=== PATIENT | male | born 1955 | race American Indian/Alaskan Native ===

== ENCOUNTER 2017-11-08 15:35 | Emergency (ER) | payer OTHER, MEDICARE ==
[2017-11-08] MEDS ORDERED: Morphine 4 MG/ML Syringe IVPUSH ONE (16:04)
[2017-11-08] MEDS ORDERED: Ketorolac 30 MG/ML SDV IVPUSH ONE (16:25)
[2017-11-08] MEDS ORDERED: Acetaminophen/HYDROcodone 325-5 MG Tab PO PRN (16:35)
[2017-11-08] MEDS ORDERED: Take Home: Acetaminophen/HYDROcodone 325-5 MG, 5 Tab Pack PO ONE (16:54)
[2017-11-08 17:06] VITALS: BP 161/100
--- NOTE | 2017-11-09 21:16 | EDM.PDOC ---
ED HPI GENERAL MEDICAL PROBLEM - General Chief Complaint: Back Pain or Injury Time Seen by Provider: 11/08/17 15:55 Source of Information: Reports: Patient History Limitations: Reports: No Limitations - History of Present Illness INITIAL COMMENTS - FREE TEXT/NARRATIVE: low back pain. Acute on chronic. Has been dealing with this for some time. States pain is in his lumbar spine and radiates into his L buttock area. Denies any trauma to the area. No fecal or urinary incontinence. States that discomfort is worse with movement. Has been seen twice in ER for this. States that he is unable to stand or walk due to discomfort. Has not had any imaging of his lumbar spine. Refuses to do PT as it "isn't working". Location: Reports: Back Quality: Reports: Ache, Throbbing Severity: Moderate Improves with: Reports: Rest Worsens with: Reports: Movement Lower Back Pain Score (Numeric/FACES): 4 - Related Data Allergies Allergy/AdvReac Type Severity Reaction Status Date / Time No Known Allergies Allergy Verified 11/08/17 16:00 Home Meds: Home Meds Cholecalciferol (Vitamin D3) [Vitamin D3] 2,000 units PO DAILY 08/01/17 [History ] OLANZapine 20 mg PO BEDTIME 08/01/17 [History] Tiotropium [place] [Spiriva Respimat] 2 inh IH BID 08/01/17 [History] Folic Acid 1 mg PO DAILY 11/02/17 [History] Multivitamin [Multivitamins] 1 each PO DAILY 11/02/17 [History] Pantoprazole Sodium [Protonix] 40 mg PO BID 11/02/17 [History] Thiamine [Vitamin B-1] 100 mg PO BEDTIME 11/02/17 [History] Past Medical History Respiratory History: Reports: COPD Musculoskeletal History: Reports: Back Pain, Chronic Psychiatric History: Reports: Schizophrenia - Past Surgical History HEENT Surgical History: Reports: Tonsillectomy, Other (See Below) Other HEENT Surgeries/Procedures: eyelid surgery Social & Family History - Tobacco Use Smoking Status *Q: Current Every Day Smoker Years of Tobacco use: 40 Packs/Tins Daily: 1 - Caffeine Use Caffeine Use: Reports: Coffee - Alcohol Use Days Per Week of Alcohol Use: 7 Number of Drinks Per Day: 3 Total Drinks Per Week: 21 - Recreational Drug Use Recreational Drug Use: No ED ROS GENERAL - Review of Systems Review Of Systems: See Below Constitutional: Reports: No Symptoms HEENT: Reports: No Symptoms Respiratory: Reports: No Symptoms Cardiovascular: Reports: No Symptoms Endocrine: Reports: No Symptoms GI/Abdominal: Reports: No Symptoms : Reports: No Symptoms Musculoskeletal: Reports: Back Pain Skin: Reports: No Symptoms Neurological: Reports: Paresthesia (discomfort radiates into L buttock) Psychiatric: Reports: No Symptoms Hematologic/Lymphatic: Reports: No Symptoms Immunologic: Reports: No Symptoms ED EXAM,LOWER BACK PAIN/INJURY - Physical Exam Exam: See Below General Appearance: Alert, WD/WN, No Apparent Distress Back Exam: Decreased Range of Motion, Muscle Spasm, Paraspinal Tenderness Course - Vital Signs Last Recorded V/S: Last Vital Signs Temp 37.4 C 11/08/17 15:35 Pulse 92 11/08/17 17:04 Resp 16 11/08/17 17:04 BP 161/100 H 11/08/17 17:04 Pulse Ox 99 11/08/17 17:04 - Orders/Labs/Meds Meds: Medications Discontinued Medications Generic Name Dose Route Start Last Admin Trade Name Freq PRN Reason Stop Dose Admin Hydrocodone Bitart/Acetaminophen 1 tab 11/08/17 16:35 [place] 325-5 Mg PO Q6H PRN Pain Hydrocodone Bitart/Acetaminophen 1 packet 11/08/17 16:54 11/08/17 16:59 Take Home: Acetam/Hydrocodon 325-5 Mg, 5 Pack PO 11/08/17 16:55 1 packet ONETIME ONE Administration Diazepam 5 mg 11/08/17 16:05 11/08/17 16:17 Valium IVPUSH 11/08/17 16:06 5 mg ONETIME ONE Administration Ketorolac Tromethamine 30 mg 11/08/17 16:25 11/08/17 16:29 Toradol IVPUSH 11/08/17 16:26 30 mg ONETIME ONE Administration Morphine Sulfate 4 mg 11/08/17 16:04 11/08/17 16:14 Morphine IVPUSH 11/08/17 16:05 4 mg ONETIME ONE Administration Departure - Departure Time of Disposition: 17:20 Disposition: Home, Self-Care 01 Condition: Good Clinical Impression: Left-sided low back pain with sciatica Qualifiers: Chronicity: chronic Sciatica laterality: sciatica of left side Qualified Code(s ): M54.42 - Lumbago with sciatica, left side - Discharge Information Instructions: Back Pain, Adult, [id number] Forms: ED Department Discharge Additional Instructions: [place] 10/325mg 1 every 6 hours as needed for pain Continue with cyclobenzaprine, prednisone, and ibuprofen I will not given you any more oral pain medication. You need to get your pain medication for Dr. Lange.
== END 2017-11-08 17:15 | disposition home or self-care (01) ==
LOC: VM.ED 15:35
DX: M54.42 Lumbago with sciatica, left side (principal); J44.9 Chronic obstructive pulmonary disease, unspecified; F20.9 Schizophrenia, unspecified; F17.210 Nicotine dependence, cigarettes, uncomplicated; Z79.899 Other long term (current) drug therapy
CPT/HCPCS: 96374; 96375; 99284; A9270; J1885; J2270; J3360; 99283-GF

== ENCOUNTER 2017-11-15 09:47 | Emergency (ER) | payer OTHER, MEDICARE ==
[2017-11-15] MEDS ORDERED: Ondansetron 4 MG/2 ML SDV IVPUSH ONE (09:51)
[2017-11-15] MEDS ORDERED: Morphine 4 MG/ML Syringe IVPUSH ONE (09:51)
[2017-11-15] MEDS ORDERED: Take Home: Ketorolac 10 MG Tab, 4 Tab Pack PO ONE (10:15)
[2017-11-15 10:17] VITALS: BP 147/100
--- NOTE | 2017-11-15 10:21 | EDM.PDOC ---
ED HPI GENERAL MEDICAL PROBLEM - General Chief Complaint: Back Pain or Injury Stated Complaint: ER Time Seen by Provider: 11/15/17 10:00 Source of Information: Reports: Patient, EMS History Limitations: Reports: No Limitations - History of Present Illness INITIAL COMMENTS - FREE TEXT/NARRATIVE: Pt came in by EMS today for chronic lower back pain. He states that few months ago he sustained an injury that resulted in chronic lower back and has had a CT scan and MRI which has concluded that he has degenerative/compressed disks. He does have an appointment in 2 weeks to have an injection place in his lower spine to help with the discomfort. Patient states he has no pain medications at home has not seen any other provider and obtain medications. He states that this pain was a sudden onset this morning and some sciatica type pain. He is unable to move after the pain starts he needed to call EMS to help transport him. In route vomiting orders were provided to go and given 4 mg of morphine. Patient has had this in the past and has worked extremely well for him. Patient denies falling hitting his head, loss of bowels, shortness of breath, or chest pain. 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 - Related Data Allergies Allergy/AdvReac Type Severity Reaction Status Date / Time No Known Allergies Allergy Verified 11/15/17 09:53 Home Meds: Home Meds Cholecalciferol (Vitamin D3) [Vitamin D3] 2,000 units PO DAILY 08/01/17 [History ] OLANZapine 20 mg PO BEDTIME 08/01/17 [History] Tiotropium [place] [Spiriva Respimat] 2 inh IH BID 08/01/17 [History] Folic Acid 1 mg PO DAILY 11/02/17 [History] Multivitamin [Multivitamins] 1 each PO DAILY 11/02/17 [History] Pantoprazole Sodium [Protonix] 40 mg PO BID 11/02/17 [History] Thiamine [Vitamin B-1] 100 mg PO BEDTIME 11/02/17 [History] Cyclobenzaprine [Flexeril] 10 mg PO TID PRN #20 tablet 11/15/17 [Rx] Past Medical History Respiratory History: Reports: COPD Musculoskeletal History: Reports: Back Pain, Chronic Psychiatric History: Reports: Schizophrenia - Past Surgical History HEENT Surgical History: Reports: Tonsillectomy, Other (See Below) Other HEENT Surgeries/Procedures: eyelid surgery Social & Family History - Tobacco Use Smoking Status *Q: Current Every Day Smoker Years of Tobacco use: 40 Packs/Tins Daily: 1 - Caffeine Use Caffeine Use: Reports: Coffee - Alcohol Use Days Per Week of Alcohol Use: 7 Number of Drinks Per Day: 3 Total Drinks Per Week: 21 - Recreational Drug Use Recreational Drug Use: No ED ROS GENERAL - Review of Systems Review Of Systems: See Below Constitutional: Reports: No Symptoms HEENT: Reports: No Symptoms Respiratory: Reports: No Symptoms Cardiovascular: Reports: No Symptoms Endocrine: Reports: No Symptoms GI/Abdominal: Reports: No Symptoms : Reports: No Symptoms Musculoskeletal: Reports: Back Pain Skin: Reports: No Symptoms Neurological: Reports: No Symptoms Psychiatric: Reports: No Symptoms Immunologic: Reports: No Symptoms ED EXAM,LOWER BACK PAIN/INJURY - Physical Exam Exam: See Below Exam Limited By: No Limitations General Appearance: Alert, WD/WN, No Apparent Distress Head: Atraumatic, Normocephalic Neck: Normal Inspection, Supple Respiratory/Chest: No Respiratory Distress, Lungs Clear, Normal Breath Sounds, No Accessory Muscle Use, Chest Non-Tender Cardiovascular: Normal Peripheral Pulses, Regular Rate, Rhythm, No Edema, No JVD , No Murmur, No Rub Back Exam: Decreased Range of Motion, Muscle Spasm. No: CVA Tenderness (L), CVA Tenderness (R), Paraspinal Tenderness, Vertebral Tenderness Neurological: Alert, Normal Mood/Affect Psychiatric: Normal Affect, Normal Mood Skin Exam: Dry, Intact, Normal Color, No Rash Course - Orders/Labs/Meds Orders: Active Orders 24 hr Category Date Time Status Ketorolac [Take Home: Ketorolac 10 MG, 4 Tab Pack] Med 11/15/17 10:15 Once 1 packet PO ONETIME ONE Orphenadrine [Norflex] Med 11/15/17 10:15 Active 60 mg IM Q12H Medication Orders Orphenadrine Citrate (Norflex) 60 mg IM Q12H JANA Last Admin: 11/15/17 10:10 Dose: 60 mg Meds: Medications Generic Name Dose Route Start Last Admin Trade Name Freq PRN Reason Stop Dose Admin Orphenadrine Citrate 60 mg 11/15/17 10:15 11/15/17 10:10 Norflex IM 60 mg Q12H JANA Administration Discontinued Medications Generic Name Dose Route Start Last Admin Trade Name [place] PRN Reason Stop Dose Admin Morphine Sulfate 4 mg 11/15/17 09:51 11/15/17 09:57 Morphine IVPUSH 11/15/17 09:52 4 mg ONETIME ONE Administration Ondansetron HCl 4 mg 11/15/17 09:51 11/15/17 09:57 Zofran IVPUSH 11/15/17 09:52 4 mg ONETIME ONE Administration Departure - Departure Time of Disposition: 10:22 Disposition: Home, Self-Care 01 Condition: Good Clinical Impression: Lumbar back pain with radiculopathy affecting left lower extremity Chronic low back pain Qualifiers: Back pain laterality: midline Sciatica presence: with sciatica Sciatica laterality: sciatica of right side Qualified Code(s): M54.41 - Lumbago with sciatica, right side; G89.29 - Other chronic pain; G89.29 - Other chronic pain Low back pain Qualifiers: Chronicity: acute Back pain laterality: midline Sciatica presence: with sciatica Sciatica laterality: bilateral sciatica Qualified Code(s): M54.42 - Lumbago with sciatica, left side; M54.41 - Lumbago with sciatica, right side; M54.41 - Lumbago with sciatica, right side - Discharge Information Prescriptions: Cyclobenzaprine [Flexeril] 10 mg PO TID PRN #20 tablet PRN Reason: Pain Instructions: Muscle Strain, [id number], Chronic Back Pain Additional Instructions: Did discuss with the patient that for chronic lower back pain we will not be supplying narcotics here in the emergency department did offer him a morphine injection inguinal. However following here abdominal nonnarcotic medications will be prescribed for his chronic lower back pain. He is to be following up with pain management for further treatment. - My Orders Last 24 Hours: My Active Orders 11/15/17 10:15 Ketorolac [Take Home: Ketorolac 10 MG, 4 Tab Pack] 1 packet PO ONETIME ONE Orphenadrine [Norflex] 60 mg IM Q12H - Assessment/Plan Last 24 Hours: My Active Orders 11/15/17 10:15 Ketorolac [Take Home: Ketorolac 10 MG, 4 Tab Pack] 1 packet PO ONETIME ONE Orphenadrine [Norflex] 60 mg IM Q12H
== END 2017-11-15 10:30 | disposition home or self-care (01) ==
LOC: VM.ED 09:47
DX: M54.42 Lumbago with sciatica, left side (principal); M54.41 Lumbago with sciatica, right side; M54.16 Radiculopathy, lumbar region; F17.210 Nicotine dependence, cigarettes, uncomplicated; J44.9 Chronic obstructive pulmonary disease, unspecified; Z79.899 Other long term (current) drug therapy
CPT/HCPCS: 96372; 96374; 96375; 99284; J2270; J2360; J2405

== ENCOUNTER 2023-03-28 04:00 | Emergency (ER) | payer OTHER, MEDICARE ==
[2023-03-28] MEDS ORDERED: methylPREDNISolone Sodium Succinate 125 MG/2 ML SDV IVPUSH ONE (04:11)
[2023-03-28 04:31] LABS: BASOPHILS PERCENT AUTO 0.5 % (0.2-1.2); EOSINOPHILS PERCENT AUTO 0.5 % (0.0-4.0); HEMATOCRIT 39.1 % (40.0-52.0); HEMOGLOBIN 13.7 g/dL (14.0-18.0); LYMPHOCYTES ABSOLUTE AUTO 1.5 x10^3/uL (1.0-4.8); MEAN CORPUSCULAR HEMOGLOBIN 36.9 pg (26.0-32.0); MEAN CORPUSCULAR VOLUME 105.4 fL (78.0-93.0); MONOCYTES ABSOLUTE AUTO 0.7 x10^3/uL (0.0-0.8); MONOCYTES PERCENT AUTO 15.3 % (2.0-11.0); NEUTROPHILS ABSOLUTE AUTO 2.2 x10^3/uL (1.8-7.7); NEUTROPHILS PERCENT AUTO 49.7 % (50.0-80.0); PLATELET COUNT,PLT 193 x10^3/uL (130-400); RED BLOOD CELL COUNT 3.71 x10^6/uL (4.5-6.0); WHITE BLOOD CELL COUNT,WBC 4.4 x10^3/uL (4.0-10.0)
[2023-03-28 04:39] VITALS: BP 121/84; PULSE 99
[2023-03-28] MEDS ORDERED: ALPRAZolam 0.25 MG Tab PO ONE (04:52)
[2023-03-28 05:01] LABS: A/G RATIO 0.82; ALANINE AMINOTRANSFERASE,ALT 63 U/L (16-63); ALBUMIN 3.6 g/dL (3.4-5.0); ALKALINE PHOSPHATASE 174 U/L (46-116); ASPARTATE AMNIOTRANSFERASE,AST 122 U/L (15-37); BILIRUBIN TOTAL 1.2 mg/dL (0.2-1.0); BLOOD UREA NITROGEN,BUN 6 mg/dL (7-18); CALCIUM 8.7 mg/dL (8.5-10.1); CARBON DIOXIDE,CO2 24 mmol/L (21-32); CHLORIDE,CL 95 mmol/L (98-107); CREATINE KINASE,CK 83 U/L (39-308); CREATININE 0.9 mg/dL (0.70-1.30); EST CRCL DRUG DOSING (CG) 66.44 mL/min; GLUCOSE RANDOM 99 mg/dL (70-99); LACTATE DEHYDROGENASE,LDH 293 U/L (85-227); PRO B-TYPE NATRIUR PEPT,BNPPRO 133 pg/mL (<=125); SODIUM,NA 136 mmol/L (136-145)
[2023-03-28 05:02] LABS: C-REACTIVE PROTEIN < 0.2 mg/dL (<=0.9); ESTIMATED GFR 92 mL/min (>=60)
[2023-03-28] MEDS ORDERED: NS with KCl 40mEq 1,000 ML IV SCH (05:15)
[2023-03-28] MEDS ORDERED: Iopamidol 755 Mg/ML 100 ML Bottle IVPUSH ONE (05:27)
[2023-03-28] MEDS ORDERED: Take Home: Doxycycline 100 MG Cap, 4 Cap Pack PO ONE (07:47)
[2023-03-28] MEDS ORDERED: Take Home: Albuterol 18 GM Inhaler, 1 Inhaler Pack INH PRN (07:47)
== END 2023-03-28 08:08 | disposition home or self-care (01) ==
LOC: VM.ED 04:00
DX: J44.9 Chronic obstructive pulmonary disease, unspecified (principal); F41.9 Anxiety disorder, unspecified; K21.9 Gastro-esophageal reflux disease without esophagitis; Z72.0 Tobacco use; Z79.899 Other long term (current) drug therapy
CPT/HCPCS: 36415; 71045; 71275; 80053; 80307; 82550; 83615; 83880; 84484; 85025; 85379; 86140; 96365; 96366; 96375; 99284; 99285-25; A9270-GY; J2930; J3480; Q9967

== ENCOUNTER 2023-03-28 11:43 | Emergency (ER) | payer OTHER, MEDICARE ==
[2023-03-28] MEDS ORDERED: ALPRAZolam 0.25 MG Tab PO ONE (12:11)
[2023-03-28 12:25] LABS: HEMATOCRIT 36.9 % (40.0-52.0); IMMATURE GRAN ABSOLUTE AUTO 0.02 x10^3/uL (0.00-0.07); LYMPHOCYTES PERCENT AUTO 5.3 % (25.0-50.0); MEAN CORPUSCULAR HEMOGLOBIN 36.5 pg (26.0-32.0); MEAN CORPUSCULAR HGB CONC 35.2 g/dL (32.0-36.0); MEAN CORPUSCULAR VOLUME 103.7 fL (78.0-93.0); MONOCYTES PERCENT AUTO 1.2 % (2.0-11.0); NEUTROPHILS ABSOLUTE AUTO 3.2 x10^3/uL (1.8-7.7); NEUTROPHILS PERCENT AUTO 92.9 % (50.0-80.0); PLATELET COUNT,PLT 158 x10^3/uL (130-400); RED BLOOD CELL COUNT 3.56 x10^6/uL (4.5-6.0); WHITE BLOOD CELL COUNT,WBC 3.4 x10^3/uL (4.0-10.0)
[2023-03-28 12:40] LABS: LYMPHOCYTES ABSOLUTE AUTO 0.2 x10^3/uL (1.0-4.8)
[2023-03-28 12:46] LABS: A/G RATIO 0.78; ALANINE AMINOTRANSFERASE,ALT 71 U/L (16-63); ALBUMIN 3.5 g/dL (3.4-5.0); ALKALINE PHOSPHATASE 181 U/L (46-116); ASPARTATE AMNIOTRANSFERASE,AST 150 U/L (15-37); BILIRUBIN TOTAL 1.7 mg/dL (0.2-1.0); BLOOD UREA NITROGEN,BUN 7 mg/dL (7-18); CARBON DIOXIDE,CO2 17 mmol/L (21-32); CHLORIDE,CL 95 mmol/L (98-107); CREATININE 0.9 mg/dL (0.70-1.30); GLUCOSE RANDOM 198 mg/dL (70-99); POTASSIUM,K 3.1 mmol/L (3.5-5.1); SODIUM,NA 135 mmol/L (136-145)
[2023-03-28 12:47] LABS: ANION GAP 26.1 mmol/L (5-15); C-REACTIVE PROTEIN < 0.2 mg/dL (<=0.9); ESTIMATED GFR 92 mL/min (>=60)
[2023-03-28 12:51] LABS: CALCIUM 8.7 mg/dL (8.5-10.1)
[2023-03-28 12:56] LABS: APPEARANCE,URINE CLEAR (CLEAR); BILIRUBIN,URINE NEGATIVE (NEGATIVE); COLOR,URINE DARK YELLOW (YELLOW); GLUCOSE,URINE NEGATIVE (NEGATIVE); KETONES,URINE 15 mg/dL (NEGATIVE); LEUKOCYTE ESTERASE,URINE NEGATIVE (NEGATIVE); NITRITE,URINE NEGATIVE (NEGATIVE); OCCULT BLOOD,URINE NEGATIVE (NEGATIVE); PH,URINE 5.5 (5.0-8.0); PROTEIN,URINE NEGATIVE (NEGATIVE)
[2023-03-28 13:00] LABS: AMPHETAMINES SCREEN, URINE NEGATIVE (NEGATIVE); BARBITURATE SCREEN,URINE NEGATIVE (NEGATIVE); BENZODIAZEPINES SCREEN,URINE NEGATIVE (NEGATIVE); COCAINE METABOLITES,URINE NEGATIVE (NEGATIVE); METHADONE SCREEN, URINE NEGATIVE (NEGATIVE); METHAMPHETAMINE SCREEN, URINE NEGATIVE (NEGATIVE); OXYCODONE SCREEN,URINE NEGATIVE (NEGATIVE); PCP SCREEN,URINE NEGATIVE (NEGATIVE); THC SCREEN,URINE 50 NG/ML POSITIVE (NEGATIVE)
[2023-03-28 13:01] LABS: BUPRENORPHINE SCREEN,URINE NEGATIVE (NEGATIVE)
[2023-03-28 13:48] VITALS: BP 154/68; PULSE 98
[2023-03-28 14:06] LABS: CORONAVIRUS COVID-19 NAA NEGATIVE (NEGATIVE); INFLUENZA A NAA NEGATIVE (NEGATIVE); INFLUENZA B NAA NEGATIVE (NEGATIVE)
[2023-03-28 14:07] LABS: RESPIRATORY SYNCYTIAL VIR NAA NEGATIVE (NEGATIVE)
== END 2023-03-28 14:42 | disposition short-term general hospital (02) ==
LOC: VM.ED 11:43
DX: F41.0 Panic disorder [episodic paroxysmal anxiety] (principal); F20.9 Schizophrenia, unspecified; F10.10 Alcohol abuse, uncomplicated; J44.9 Chronic obstructive pulmonary disease, unspecified; Z72.0 Tobacco use; Y90.7 Blood alcohol level of 200-239 mg/100 ml; Z20.822 Contact with and (suspected) exposure to COVID-19
CPT/HCPCS: 0241U; 36415; 80053; 80305-QW; 80307; 81003; 83735; 85025; 86140; 99285; A9270-GY

== ENCOUNTER 2024-03-10 13:59 | Emergency (ER) | payer OTHER, MEDICARE ==
[2024-03-10] MEDS: LORazepam 2 MG/ML SDV IM ONE (14:17)
[2024-03-10] MEDS: Albuterol/Ipratropium 3.0-0.5 MG/3 ML Neb Soln NEB ONE (14:19)
[2024-03-10 14:21] LABS: BASOPHILS PERCENT AUTO 0.8 % (0.2-1.2); EOSINOPHILS ABSOLUTE AUTO 0.1 x10^3/uL (0.0-0.5); EOSINOPHILS PERCENT AUTO 0.9 % (0.0-4.0); HEMATOCRIT 34.6 % (40.0-52.0); HEMOGLOBIN 11.6 g/dL (14.0-18.0); IMMATURE GRAN ABSOLUTE AUTO 0.02 x10^3/uL (0.00-0.07); LYMPHOCYTES ABSOLUTE AUTO 1.7 x10^3/uL (1.0-4.8); LYMPHOCYTES PERCENT AUTO 32.7 % (25.0-50.0); MEAN CORPUSCULAR HGB CONC 33.5 g/dL (32.0-36.0); MEAN CORPUSCULAR VOLUME 92.5 fL (78.0-93.0); MONOCYTES ABSOLUTE AUTO 0.9 x10^3/uL (0.0-0.8); MONOCYTES PERCENT AUTO 17.8 % (2.0-11.0); NEUTROPHILS ABSOLUTE AUTO 2.5 x10^3/uL (1.8-7.7); NEUTROPHILS PERCENT AUTO 47.4 % (50.0-80.0); PLATELET COUNT,PLT 206 x10^3/uL (130-400); RED BLOOD CELL COUNT 3.74 x10^6/uL (4.5-6.0); WHITE BLOOD CELL COUNT,WBC 5.3 x10^3/uL (4.0-10.0)
[2024-03-10 14:45] LABS: PROTHROMBIN TIME 10.4 SEC (8.9-11.5); PTT,PARTIAL THROMBOPLSTIN TIME 25.4 SEC (21.9-33.8)
[2024-03-10 14:49] LABS: APPEARANCE,URINE CLEAR (CLEAR); BILIRUBIN,URINE NEGATIVE (NEGATIVE); COLOR,URINE YELLOW (YELLOW); GLUCOSE,URINE NEGATIVE (NEGATIVE); KETONES,URINE NEGATIVE (NEGATIVE); LEUKOCYTE ESTERASE,URINE NEGATIVE (NEGATIVE); NITRITE,URINE NEGATIVE (NEGATIVE); OCCULT BLOOD,URINE NEGATIVE (NEGATIVE); PROTEIN,URINE NEGATIVE (NEGATIVE)
[2024-03-10 14:52] LABS: AMPHETAMINES SCREEN, URINE NEGATIVE (NEGATIVE); BARBITURATE SCREEN,URINE NEGATIVE (NEGATIVE); BUPRENORPHINE SCREEN,URINE NEGATIVE (NEGATIVE); THC SCREEN,URINE 50 NG/ML POSITIVE (NEGATIVE)
[2024-03-10 14:53] LABS: BENZODIAZEPINES SCREEN,URINE NEGATIVE (NEGATIVE); COCAINE METABOLITES,URINE NEGATIVE (NEGATIVE); METHADONE SCREEN, URINE NEGATIVE (NEGATIVE); METHAMPHETAMINE SCREEN, URINE NEGATIVE (NEGATIVE); OXYCODONE SCREEN,URINE NEGATIVE (NEGATIVE); PCP SCREEN,URINE NEGATIVE (NEGATIVE)
[2024-03-10 14:55] LABS: BLOOD UREA NITROGEN,BUN 8 mg/dL (7-18); CARBON DIOXIDE,CO2 21 mmol/L (21-32); CHLORIDE,CL 102 mmol/L (98-107); CREATININE 0.9 mg/dL (0.70-1.30); GLUCOSE RANDOM 129 mg/dL (70-99); POTASSIUM,K 3.4 mmol/L (3.5-5.1); SODIUM,NA 139 mmol/L (136-145)
[2024-03-10 14:56] LABS: A/G RATIO 0.93; ALANINE AMINOTRANSFERASE,ALT 15 U/L (16-63); ALKALINE PHOSPHATASE 102 U/L (46-116); ASPARTATE AMNIOTRANSFERASE,AST 26 U/L (15-37); BILIRUBIN TOTAL 0.5 mg/dL (0.2-1.0); CALCIUM 8.8 mg/dL (8.5-10.1); MAGNESIUM 2.1 mg/dL (1.8-2.4); PROTEIN TOTAL,TP 8.3 g/dL (6.4-8.2); TSH ULTRASENSITIVE 2.301 uIU/mL (0.358-3.74)
[2024-03-10 14:58] LABS: ANION GAP 19.4 mmol/L (5-15); C-REACTIVE PROTEIN < 0.50 mg/dL (<=0.50); ESTIMATED GFR 92 mL/min (>=60)
[2024-03-10 14:59] LABS: ETHANOL BLOOD MEDICAL 364 mg/dL (0-3)
[2024-03-10 15:08] LABS: ACETAMINOPHEN 0 ug/ml (10-30)
[2024-03-10 15:11] LABS: CORONAVIRUS COVID-19 NAA NEGATIVE (NEGATIVE); INFLUENZA A NAA NEGATIVE (NEGATIVE); INFLUENZA B NAA NEGATIVE (NEGATIVE)
[2024-03-10 15:12] LABS: RESPIRATORY SYNCYTIAL VIR NAA NEGATIVE (NEGATIVE)
[2024-03-10 15:54] VITALS: BP 116/71; PULSE 94
== END 2024-03-10 16:30 ==
LOC: VM.ED 13:59
DX: F10.129 Alcohol abuse with intoxication, unspecified (principal); J44.9 Chronic obstructive pulmonary disease, unspecified; R45.851 Suicidal ideations; R45.850 Homicidal ideations; Y90.9 Presence of alcohol in blood, level not specified
CPT/HCPCS: 0241U; 36415; 71045; 80053; 80143; 80305-QW; 80307; 81003; 83735; 84443; 85025; 85610; 85730; 86140; 94640; 96372; 99285; J2060; J7620-GY

== ENCOUNTER 2024-03-23 11:42 | Emergency (ER) | payer OTHER, MEDICARE ==
[2024-03-23 12:23] LABS: BASOPHILS PERCENT AUTO 1.1 % (0.2-1.2); EOSINOPHILS PERCENT AUTO 1.1 % (0.0-4.0); HEMATOCRIT 35.3 % (40.0-52.0); HEMOGLOBIN 11.7 g/dL (14.0-18.0); IMMATURE GRAN ABSOLUTE AUTO 0.01 x10^3/uL (0.00-0.07); LYMPHOCYTES ABSOLUTE AUTO 1.1 x10^3/uL (1.0-4.8); MEAN CORPUSCULAR HEMOGLOBIN 30.6 pg (26.0-32.0); MEAN CORPUSCULAR HGB CONC 33.1 g/dL (32.0-36.0); MEAN CORPUSCULAR VOLUME 92.4 fL (78.0-93.0); MONOCYTES ABSOLUTE AUTO 0.6 x10^3/uL (0.0-0.8); MONOCYTES PERCENT AUTO 15.8 % (2.0-11.0); NEUTROPHILS ABSOLUTE AUTO 1.9 x10^3/uL (1.8-7.7); NEUTROPHILS PERCENT AUTO 50.7 % (50.0-80.0); PLATELET COUNT,PLT 222 x10^3/uL (130-400); RED BLOOD CELL COUNT 3.82 x10^6/uL (4.5-6.0); WHITE BLOOD CELL COUNT,WBC 3.7 x10^3/uL (4.0-10.0)
[2024-03-23] MEDS: diphenhydrAMINE 50 MG/ML SDV IVPUSH ONE (12:25)
[2024-03-23] MEDS: Haloperidol Lactate 5 MG/ML SDV IV ONE ×2 (12:26→12:40)
[2024-03-23 12:39] LABS: ANION GAP 16.4 mmol/L (5-15); BLOOD UREA NITROGEN,BUN 7 mg/dL (7-18); CALCIUM 8.5 mg/dL (8.5-10.1); CARBON DIOXIDE,CO2 23 mmol/L (21-32); CHLORIDE,CL 102 mmol/L (98-107); CREATININE 0.9 mg/dL (0.70-1.30); ESTIMATED GFR 91 mL/min (>=60); ETHANOL BLOOD MEDICAL 292 mg/dL (0-3); GLUCOSE RANDOM 113 mg/dL (70-99); POTASSIUM,K 3.4 mmol/L (3.5-5.1); SODIUM,NA 138 mmol/L (136-145)
[2024-03-23 13:36] LABS: AMPHETAMINES SCREEN, URINE NEGATIVE (NEGATIVE); BARBITURATE SCREEN,URINE NEGATIVE (NEGATIVE); BENZODIAZEPINES SCREEN,URINE NEGATIVE (NEGATIVE); BUPRENORPHINE SCREEN,URINE NEGATIVE (NEGATIVE)
[2024-03-23 13:37] LABS: COCAINE METABOLITES,URINE NEGATIVE (NEGATIVE); METHADONE SCREEN, URINE NEGATIVE (NEGATIVE); METHAMPHETAMINE SCREEN, URINE NEGATIVE (NEGATIVE); OXYCODONE SCREEN,URINE NEGATIVE (NEGATIVE); PCP SCREEN,URINE NEGATIVE (NEGATIVE); THC SCREEN,URINE 50 NG/ML POSITIVE (NEGATIVE)
[2024-03-23 15:20] VITALS: BP 117/79; PULSE 86
== END 2024-03-23 16:11 | disposition home or self-care (01) ==
LOC: VM.ED 11:42
DX: T51.92XA Toxic effect of unspecified alcohol, intentional self-harm, initial encounter (principal); J44.9 Chronic obstructive pulmonary disease, unspecified
CPT/HCPCS: 36415; 80048; 80305-QW; 80307; 85025; 96374; 96375; 99285; 99285-25; J1200; J1630

== ENCOUNTER 2024-04-01 14:14 | Emergency (ER) | payer MEDICARE, OTHER ==
[2024-04-01] MEDS ORDERED: Sodium Chloride 0.9% 10 ML Syringe FLUSH PRN (14:39)
[2024-04-01 15:00] LABS: HEMATOCRIT 35.1 % (40.0-52.0); HEMOGLOBIN 11.8 g/dL (14.0-18.0); IMMATURE GRAN ABSOLUTE AUTO 0.01 x10^3/uL (0.00-0.07); LYMPHOCYTES ABSOLUTE AUTO 1.3 x10^3/uL (1.0-4.8); LYMPHOCYTES PERCENT AUTO 41.6 % (25.0-50.0); MEAN CORPUSCULAR HEMOGLOBIN 31.2 pg (26.0-32.0); MEAN CORPUSCULAR HGB CONC 33.6 g/dL (32.0-36.0); MEAN CORPUSCULAR VOLUME 92.9 fL (78.0-93.0); MONOCYTES ABSOLUTE AUTO 0.5 x10^3/uL (0.0-0.8); MONOCYTES PERCENT AUTO 15.6 % (2.0-11.0); NEUTROPHILS ABSOLUTE AUTO 1.3 x10^3/uL (1.8-7.7); NEUTROPHILS PERCENT AUTO 40.5 % (50.0-80.0); PLATELET COUNT,PLT 147 x10^3/uL (130-400); RED BLOOD CELL COUNT 3.78 x10^6/uL (4.5-6.0); WHITE BLOOD CELL COUNT,WBC 3.1 x10^3/uL (4.0-10.0)
[2024-04-01 15:02] LABS: APPEARANCE,URINE CLEAR (CLEAR); BILIRUBIN,URINE NEGATIVE (NEGATIVE); COLOR,URINE LIGHT YELLOW (YELLOW); GLUCOSE,URINE NEGATIVE (NEGATIVE); KETONES,URINE NEGATIVE (NEGATIVE); LEUKOCYTE ESTERASE,URINE NEGATIVE (NEGATIVE); NITRITE,URINE NEGATIVE (NEGATIVE); OCCULT BLOOD,URINE NEGATIVE (NEGATIVE); PH,URINE 6.5 (5.0-8.0); PROTEIN,URINE NEGATIVE (NEGATIVE)
[2024-04-01 15:10] LABS: AMPHETAMINES SCREEN, URINE NEGATIVE (NEGATIVE); BARBITURATE SCREEN,URINE NEGATIVE (NEGATIVE); BENZODIAZEPINES SCREEN,URINE NEGATIVE (NEGATIVE); BUPRENORPHINE SCREEN,URINE NEGATIVE (NEGATIVE); COCAINE METABOLITES,URINE NEGATIVE (NEGATIVE); METHADONE SCREEN, URINE NEGATIVE (NEGATIVE); METHAMPHETAMINE SCREEN, URINE NEGATIVE (NEGATIVE); OXYCODONE SCREEN,URINE NEGATIVE (NEGATIVE); PCP SCREEN,URINE NEGATIVE (NEGATIVE); THC SCREEN,URINE 50 NG/ML POSITIVE (NEGATIVE)
[2024-04-01 15:23] LABS: A/G RATIO 0.93; ALANINE AMINOTRANSFERASE,ALT 17 U/L (16-63); ALBUMIN 4.1 g/dL (3.4-5.0); ALKALINE PHOSPHATASE 148 U/L (46-116); ASPARTATE AMNIOTRANSFERASE,AST 38 U/L (15-37); BILIRUBIN TOTAL 0.6 mg/dL (0.2-1.0); BLOOD UREA NITROGEN,BUN 6 mg/dL (7-18); CALCIUM 8.8 mg/dL (8.5-10.1); CARBON DIOXIDE,CO2 26 mmol/L (21-32); CHLORIDE,CL 105 mmol/L (98-107); CREATININE 0.9 mg/dL (0.70-1.30); GLUCOSE RANDOM 97 mg/dL (70-99); POTASSIUM,K 3.5 mmol/L (3.5-5.1); PROTEIN TOTAL,TP 8.5 g/dL (6.4-8.2); SODIUM,NA 145 mmol/L (136-145)
[2024-04-01 15:24] VITALS: BP 132/90; PULSE 90
[2024-04-01 15:24] LABS: ANION GAP 17.5 mmol/L (5-15); ESTIMATED GFR 91 mL/min (>=60)
[2024-04-01 15:26] LABS: ACETAMINOPHEN 0 ug/ml (10-30)
[2024-04-01 15:27] LABS: ETHANOL BLOOD MEDICAL 364 mg/dL (0-3)
== END 2024-04-01 16:50 ==
LOC: VM.ED 14:14
DX: F10.10 Alcohol abuse, uncomplicated (principal); Y90.8 Blood alcohol level of 240 mg/100 ml or more; R45.851 Suicidal ideations; J45.909 Unspecified asthma, uncomplicated
CPT/HCPCS: 36415; 80053; 80143; 80179; 80305-QW; 80307; 81003; 85025; 99285

== ENCOUNTER 2024-06-01 16:38 | Emergency (ER) | payer OTHER ==
[2024-06-01 16:52] VITALS: BP 123/87; PULSE 87
[2024-06-01 17:23] LABS: BASOPHILS PERCENT AUTO 0.5 % (0.2-1.2); HEMOGLOBIN 12.3 g/dL (14.0-18.0); LYMPHOCYTES ABSOLUTE AUTO 0.9 x10^3/uL (1.0-4.8); LYMPHOCYTES PERCENT AUTO 21.6 % (25.0-50.0); MEAN CORPUSCULAR HEMOGLOBIN 31.5 pg (26.0-32.0); MEAN CORPUSCULAR HGB CONC 34.2 g/dL (32.0-36.0); MEAN CORPUSCULAR VOLUME 92.3 fL (78.0-93.0); MONOCYTES ABSOLUTE AUTO 0.4 x10^3/uL (0.0-0.8); MONOCYTES PERCENT AUTO 9.1 % (2.0-11.0); NEUTROPHILS ABSOLUTE AUTO 2.8 x10^3/uL (1.8-7.7); NEUTROPHILS PERCENT AUTO 67.8 % (50.0-80.0); PLATELET COUNT,PLT 170 x10^3/uL (130-400); WHITE BLOOD CELL COUNT,WBC 4.2 x10^3/uL (4.0-10.0)
[2024-06-01] MEDS: Ondansetron 4 MG/2 ML SDV IVPUSH ONE (17:23)
[2024-06-01] MEDS: Lactated Ringers 1,000 ML IV SCH (17:23)
[2024-06-01 17:37] LABS: ALANINE AMINOTRANSFERASE,ALT 17 U/L (16-63); ALBUMIN 3.8 g/dL (3.4-5.0); ALKALINE PHOSPHATASE 133 U/L (46-116); ASPARTATE AMNIOTRANSFERASE,AST 30 U/L (15-37); BILIRUBIN TOTAL 0.8 mg/dL (0.2-1.0); BLOOD UREA NITROGEN,BUN 11 mg/dL (7-18); CALCIUM 8.7 mg/dL (8.5-10.1); CARBON DIOXIDE,CO2 21 mmol/L (21-32); CHLORIDE,CL 101 mmol/L (98-107); CREATININE 0.9 mg/dL (0.70-1.30); GLUCOSE RANDOM 102 mg/dL (70-99); LIPASE 18 U/L (19-71); MAGNESIUM 1.8 mg/dL (1.8-2.4); PHOSPHORUS 2.8 mg/dL (2.6-4.7); SODIUM,NA 140 mmol/L (136-145)
[2024-06-01 17:41] LABS: ESTIMATED GFR 91 mL/min (>=60)
[2024-06-01 18:05] LABS: CORONAVIRUS COVID-19 NAA NEGATIVE (NEGATIVE); INFLUENZA A NAA NEGATIVE (NEGATIVE); INFLUENZA B NAA NEGATIVE (NEGATIVE); RESPIRATORY SYNCYTIAL VIR NAA NEGATIVE (NEGATIVE)
[2024-06-01] MEDS: Potassium Chloride 20 MEQ Tab.ER PO ONE (18:12)
== END 2024-06-01 18:21 | disposition home or self-care (01) ==
LOC: VM.ED 16:38
DX: F10.10 Alcohol abuse, uncomplicated (principal); E87.29 Other acidosis; J44.9 Chronic obstructive pulmonary disease, unspecified
CPT/HCPCS: 0241U; 71045; 80053; 83605; 83690; 83735; 84100; 85025; 96361; 96374; 99284; 99285; A9270; J2405; J7120

== ENCOUNTER 2024-06-03 13:34 | Emergency (ER) | payer OTHER ==
[2024-06-03 13:55] LABS: BASOPHILS PERCENT AUTO 0.9 % (0.2-1.2); EOSINOPHILS ABSOLUTE AUTO 0.1 x10^3/uL (0.0-0.5); EOSINOPHILS PERCENT AUTO 2.1 % (0.0-4.0); HEMATOCRIT 34.5 % (40.0-52.0); HEMOGLOBIN 11.4 g/dL (14.0-18.0); LYMPHOCYTES PERCENT AUTO 30.3 % (25.0-50.0); MEAN CORPUSCULAR HEMOGLOBIN 31.6 pg (26.0-32.0); MEAN CORPUSCULAR VOLUME 95.6 fL (78.0-93.0); MONOCYTES ABSOLUTE AUTO 0.6 x10^3/uL (0.0-0.8); MONOCYTES PERCENT AUTO 16.8 % (2.0-11.0); NEUTROPHILS ABSOLUTE AUTO 1.7 x10^3/uL (1.8-7.7); NEUTROPHILS PERCENT AUTO 49.9 % (50.0-80.0); PLATELET COUNT,PLT 151 x10^3/uL (130-400); RED BLOOD CELL COUNT 3.61 x10^6/uL (4.5-6.0); WHITE BLOOD CELL COUNT,WBC 3.3 x10^3/uL (4.0-10.0)
[2024-06-03 14:22] LABS: A/G RATIO 0.97; ALANINE AMINOTRANSFERASE,ALT 19 U/L (16-63); ALBUMIN 3.5 g/dL (3.4-5.0); ALKALINE PHOSPHATASE 118 U/L (46-116); ASPARTATE AMNIOTRANSFERASE,AST 30 U/L (15-37); BILIRUBIN TOTAL 0.6 mg/dL (0.2-1.0); BLOOD UREA NITROGEN,BUN 9 mg/dL (7-18); CARBON DIOXIDE,CO2 24 mmol/L (21-32); CHLORIDE,CL 103 mmol/L (98-107); CREATININE 0.9 mg/dL (0.70-1.30); GLUCOSE RANDOM 122 mg/dL (70-99); PROTEIN TOTAL,TP 7.1 g/dL (6.4-8.2); SODIUM,NA 141 mmol/L (136-145)
[2024-06-03 14:28] LABS: ANION GAP 16.4 mmol/L (5-15); ESTIMATED GFR 91 mL/min (>=60)
[2024-06-03 14:29] LABS: ACETAMINOPHEN 0 ug/ml (10-30); ETHANOL BLOOD MEDICAL 395 mg/dL (0-3)
[2024-06-03 14:30] LABS: POTASSIUM,K 2.4 mmol/L (3.5-5.1)
[2024-06-03] MEDS: Potassium Chloride Riders 10 MEQ in Premix Bag 1 BAG IV ONE (14:46)
[2024-06-03] MEDS: Potassium Chloride 20 MEQ Tab.ER PO ONE (14:49)
[2024-06-03] MEDS ORDERED: Carvedilol 3.125 MG Tab PO ONE (15:03)
[2024-06-03 19:18] VITALS: BP 111/73; PULSE 80
== END 2024-06-03 15:30 | disposition short-term general hospital (02) ==
LOC: VM.ED 13:34
DX: R45.851 Suicidal ideations (principal); F10.220 Alcohol dependence with intoxication, uncomplicated; E87.6 Hypokalemia; J44.9 Chronic obstructive pulmonary disease, unspecified
CPT/HCPCS: 80053; 80143; 80179; 80307; 85025; 96365; 99285; A9270; J3480; 93010; 99284

== ENCOUNTER 2025-05-14 | Emergency (ER) | payer OTHER, MEDICARE ==
[2025-05-14 00:17] LABS: BASOPHILS ABSOLUTE AUTO 0.0 x10^3/uL (0.0-0.2); BASOPHILS PERCENT AUTO 0.3 % (0.2-1.2); EOSINOPHILS ABSOLUTE AUTO 0.0 x10^3/uL (0.0-0.5); EOSINOPHILS PERCENT AUTO 0.0 % (0.0-4.0); IMMATURE GRAN ABSOLUTE AUTO 0.05 x10^3/uL (0.00-0.07); IMMATURE GRAN PERCENT AUTO 0.80 % (0.00-0.43); LYMPHOCYTES ABSOLUTE AUTO 0.5 x10^3/uL (1.0-4.8); LYMPHOCYTES PERCENT AUTO 7.7 % (25.0-50.0); MONOCYTES ABSOLUTE AUTO 0.5 x10^3/uL (0.0-0.8); MONOCYTES PERCENT AUTO 8.2 % (2.0-11.0); NEUTROPHILS ABSOLUTE AUTO 5.2 x10^3/uL (1.8-7.7); NEUTROPHILS PERCENT AUTO 83.0 % (50.0-80.0); PLATELET COUNT,PLT 153 x10^3/uL (130-400); RED BLOOD CELL COUNT 3.54 x10^6/uL (4.5-6.0); WHITE BLOOD CELL COUNT,WBC 6.2 x10^3/uL (4.0-10.0)
[2025-05-14 00:37] VITALS: BP 106/73; PULSE 97
[2025-05-14 00:40] LABS: A/G RATIO 0.92; ALANINE AMINOTRANSFERASE,ALT 19.0 U/L (16-63); ASPARTATE AMNIOTRANSFERASE,AST 25.0 U/L (15-37); BILIRUBIN TOTAL 0.5 mg/dL (0.2-1.0); BLOOD UREA NITROGEN,BUN 12.0 mg/dL (7-18); CARBON DIOXIDE,CO2 23.0 mmol/L (21-32); CHLORIDE,CL 100.0 mmol/L (98-107); CREATININE 0.8 mg/dL (0.70-1.30); EST CRCL DRUG DOSING (CG) 75.32 mL/min; ESTIMATED GFR 94.0 mL/min (>=60); ETHANOL BLOOD MEDICAL 254.0 mg/dL (0-3); GLUCOSE RANDOM 152.0 mg/dL (70-99); POTASSIUM,K 3.2 mmol/L (3.5-5.1); PROTEIN TOTAL,TP 7.1 g/dL (6.4-8.2); SODIUM,NA 138.0 mmol/L (136-145)
[2025-05-14] MEDS: Lactated Ringers 1,000 ML IV SCH (00:41)
== END 2025-05-14 01:22 | disposition home or self-care (01) ==
LOC: VM.ED
DX: R07.9 Chest pain, unspecified (principal); F10.10 Alcohol abuse, uncomplicated; E87.6 Hypokalemia; J44.9 Chronic obstructive pulmonary disease, unspecified; Y90.8 Blood alcohol level of 240 mg/100 ml or more
CPT/HCPCS: 36415; 71045; 80053; 80307; 83690; 83735; 84484; 85025; 93010; 96360; 99284; 99285-25; J7120

== ENCOUNTER 2025-05-14 22:37 | Emergency (ER) | payer OTHER, MEDICARE ==
[2025-05-14] MEDS ORDERED: Sodium Chloride 0.9% 10 ML Syringe FLUSH PRN (22:51)
[2025-05-14] MEDS: Ondansetron 4 MG/2 ML SDV IVPUSH ONE (23:08)
[2025-05-14] MEDS: Alum Hydrox/Mag Hydrox/Simeth 30 ML, Lidocaine 2% 15 ML, Promethazine 12.5 MG PO ONE (23:10)
[2025-05-14 23:22] VITALS: BP 159/90; PULSE 94
[2025-05-14 23:22] LABS: AMPHETAMINES SCREEN, URINE NEGATIVE (NEGATIVE); BUPRENORPHINE SCREEN,URINE NEGATIVE (NEGATIVE); COCAINE METABOLITES,URINE NEGATIVE (NEGATIVE); METHADONE SCREEN, URINE NEGATIVE (NEGATIVE); METHAMPHETAMINE SCREEN, URINE NEGATIVE (NEGATIVE); OXYCODONE SCREEN,URINE NEGATIVE (NEGATIVE); PCP SCREEN,URINE NEGATIVE (NEGATIVE); THC SCREEN,URINE 50 NG/ML POSITIVE (NEGATIVE)
[2025-05-14 23:22] LABS: BASOPHILS ABSOLUTE AUTO 0.0 x10^3/uL (0.0-0.2); BASOPHILS PERCENT AUTO 0.3 % (0.2-1.2); EOSINOPHILS ABSOLUTE AUTO 0.0 x10^3/uL (0.0-0.5); EOSINOPHILS PERCENT AUTO 0.1 % (0.0-4.0); IMMATURE GRAN ABSOLUTE AUTO 0.04 x10^3/uL (0.00-0.07); IMMATURE GRAN PERCENT AUTO 0.50 % (0.00-0.43); LYMPHOCYTES ABSOLUTE AUTO 0.5 x10^3/uL (1.0-4.8); LYMPHOCYTES PERCENT AUTO 6.2 % (25.0-50.0); MONOCYTES ABSOLUTE AUTO 0.7 x10^3/uL (0.0-0.8); MONOCYTES PERCENT AUTO 8.9 % (2.0-11.0); NEUTROPHILS ABSOLUTE AUTO 6.4 x10^3/uL (1.8-7.7); NEUTROPHILS PERCENT AUTO 84.0 % (50.0-80.0); PLATELET COUNT,PLT 158 x10^3/uL (130-400); RED BLOOD CELL COUNT 3.73 x10^6/uL (4.5-6.0); WHITE BLOOD CELL COUNT,WBC 7.6 x10^3/uL (4.0-10.0)
[2025-05-14 23:32] LABS: APPEARANCE,URINE CLEAR (CLEAR); GLUCOSE,URINE NEGATIVE (NEGATIVE); OCCULT BLOOD,URINE NEGATIVE (NEGATIVE)
[2025-05-14 23:33] LABS: EPITHELIAL CELLS,URINE RARE
[2025-05-14 23:35] LABS: INR 1.0 (0.9-1.1)
[2025-05-14 23:40] LABS: A/G RATIO 0.88; ALANINE AMINOTRANSFERASE,ALT 21 U/L (16-63); ASPARTATE AMNIOTRANSFERASE,AST 31 U/L (15-37); BILIRUBIN TOTAL 1.0 mg/dL (0.2-1.0); BLOOD UREA NITROGEN,BUN 12 mg/dL (7-18); CARBON DIOXIDE,CO2 26 mmol/L (21-32); CHLORIDE,CL 99 mmol/L (98-107); CREATININE 0.7 mg/dL (0.70-1.30); EST CRCL DRUG DOSING (CG) 86.08 mL/min; ESTIMATED GFR 98 mL/min (>=60); ETHANOL BLOOD MEDICAL 69 mg/dL (0-3); GLUCOSE RANDOM 133 mg/dL (70-99); POTASSIUM,K 3.2 mmol/L (3.5-5.1); PROTEIN TOTAL,TP 7.7 g/dL (6.4-8.2); SODIUM,NA 140 mmol/L (136-145)
[2025-05-14 23:43] LABS: LACTIC ACID 3.6 mmol/L (0.4-2.0)
[2025-05-14] MEDS: Lactated Ringers 1,000 ML IV ONE (23:50)
[2025-05-15] MEDS: Iopamidol 612 MG/ML 100 ML Bottle IVPUSH ONE (00:19)
[2025-05-15] MEDS: Lactated Ringers 1,000 ML IV ONE (01:22)
== END 2025-05-15 01:48 | disposition home or self-care (01) ==
LOC: SUPCPDRO 22:37 → VM.ED 22:37
DX: K29.20 Alcoholic gastritis without bleeding (principal)
CPT/HCPCS: 36415; 74177; 80053; 80305-QW; 80307; 81001; 82140; 82150; 83605; 83690; 83735; 85025; 85610; 85730; 86140; 96361; 96374; 96375; 99284; 99285-25; A9270-GY; J2270; J2405; J2470; J7120; Q9967

== ENCOUNTER 2025-05-16 11:14 | Emergency (ER) | payer OTHER, MEDICARE ==
[2025-05-16 11:36] LABS: BASOPHILS ABSOLUTE AUTO 0.0 x10^3/uL (0.0-0.2); BASOPHILS PERCENT AUTO 0.1 % (0.2-1.2); EOSINOPHILS ABSOLUTE AUTO 0.0 x10^3/uL (0.0-0.5); EOSINOPHILS PERCENT AUTO 0.1 % (0.0-4.0); IMMATURE GRAN ABSOLUTE AUTO 0.03 x10^3/uL (0.00-0.07); IMMATURE GRAN PERCENT AUTO 0.40 % (0.00-0.43); LYMPHOCYTES ABSOLUTE AUTO 0.5 x10^3/uL (1.0-4.8); LYMPHOCYTES PERCENT AUTO 5.6 % (25.0-50.0); MONOCYTES ABSOLUTE AUTO 0.5 x10^3/uL (0.0-0.8); MONOCYTES PERCENT AUTO 6.0 % (2.0-11.0); NEUTROPHILS ABSOLUTE AUTO 7.5 x10^3/uL (1.8-7.7); NEUTROPHILS PERCENT AUTO 87.8 % (50.0-80.0); PLATELET COUNT,PLT 122 x10^3/uL (130-400); RED BLOOD CELL COUNT 3.20 x10^6/uL (4.5-6.0)
[2025-05-16] MEDS: Ondansetron 4 MG/2 ML SDV IVPUSH ONE (11:45)
[2025-05-16] MEDS: Ketorolac 15 MG/ML SDV IVPUSH ONE (11:45)
[2025-05-16 11:46] LABS: AMPHETAMINES SCREEN, URINE NEGATIVE (NEGATIVE); THC SCREEN,URINE 50 NG/ML POSITIVE (NEGATIVE)
[2025-05-16 11:47] LABS: BUPRENORPHINE SCREEN,URINE NEGATIVE (NEGATIVE); COCAINE METABOLITES,URINE NEGATIVE (NEGATIVE); METHADONE SCREEN, URINE NEGATIVE (NEGATIVE); METHAMPHETAMINE SCREEN, URINE NEGATIVE (NEGATIVE); OXYCODONE SCREEN,URINE NEGATIVE (NEGATIVE); PCP SCREEN,URINE NEGATIVE (NEGATIVE)
[2025-05-16 11:54] LABS: WHITE BLOOD CELL COUNT,WBC 8.6 x10^3/uL (4.0-10.0)
[2025-05-16 11:55] LABS: A/G RATIO 0.89; ALANINE AMINOTRANSFERASE,ALT 21 U/L (16-63); ASPARTATE AMNIOTRANSFERASE,AST 30 U/L (15-37); BILIRUBIN TOTAL 1.6 mg/dL (0.2-1.0); BLOOD UREA NITROGEN,BUN 11 mg/dL (7-18); CARBON DIOXIDE,CO2 27 mmol/L (21-32); CHLORIDE,CL 96 mmol/L (98-107); CREATININE 0.7 mg/dL (0.70-1.30); GLUCOSE RANDOM 105 mg/dL (70-99); POTASSIUM,K 3.4 mmol/L (3.5-5.1); PROTEIN TOTAL,TP 7.0 g/dL (6.4-8.2); SODIUM,NA 132 mmol/L (136-145)
[2025-05-16 11:56] LABS: ESTIMATED GFR 98 mL/min (>=60); ETHANOL BLOOD MEDICAL < 3 mg/dL (0-3)
[2025-05-16 13:01] VITALS: BP 128/78; PULSE 90
== END 2025-05-16 12:45 | disposition home or self-care (01) ==
LOC: VM.ED 11:14
DX: K29.20 Alcoholic gastritis without bleeding (principal); J44.9 Chronic obstructive pulmonary disease, unspecified
CPT/HCPCS: 80053; 80305-QW; 80307; 82140; 82150; 83690; 85025; 96374; 96375; 99284-25; A9270-GY; J1885; J2405